=== PATIENT | female | born 1995 | race Caucasian/White ===

== ENCOUNTER 2021-02-15 22:23 | Emergency (ER) | payer BC, OTHER ==
[2021-02-15] MEDS ORDERED: Lactated Ringers 1,000 ML IV SCH (22:45)
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
--- NOTE | 2021-02-16 08:38 | CR ---
Left humerus: 2 views of the left humerus were obtained. Comparison: No prior humerus study is available. No acute fracture or other bony abnormality is appreciated. Impression: 1. No abnormality is identified on 2 view left humerus study. Diagnostic code #1
--- NOTE | 2021-02-16 09:15 | CR ---
Left forearm: 2 views of the left forearm were obtained. Comparison: No prior forearm study is available. Joint spaces are maintained. No discrete fracture or other bony abnormality is appreciated. Impression: 1. No acute osseous finding is seen on 2 view left forearm study. Diagnostic code #1
--- NOTE | 2021-02-16 09:15 | CR ---
Left hand: 2 views of the left hand were obtained. Comparison: No prior hand study is available. Joint spaces are maintained. No acute fracture, dislocation or other bony abnormality is appreciated. Impression: 1. No abnormality is appreciated on 2 view left hand exam. Diagnostic code #1
--- NOTE | 2021-02-16 09:15 | CT ---
Head CT Technique: Multiple axial sections through the brain were obtained. Intravenous contrast was not utilized. Reconstructed coronal and sagittal images were obtained. Comparison: No prior intracranial imaging is available. Findings: Ventricles along with basal cisterns and sulci over the convexities are within normal limits for the patient's age. No abnormal parenchymal densities are seen. No evidence of intracranial hemorrhage. No midline shift or mass-effect is appreciated. Bone window settings were reviewed. Visualized paranasal sinuses and mastoid sinuses show nothing acute. No acute calvarial abnormality is appreciated. Impression: 1. Nothing acute is appreciated on noncontrast head CT study. Diagnostic code #1 I agree with preliminary report from [facility], finalized on 02/16/21, 12:53 AM CDT
--- NOTE | 2021-02-16 10:29 | CT ---
CT cervical spine Technique: Multiple axial sections were obtained from above C1 inferiorly to the top of T2. Reconstructed coronal and sagittal images were obtained. Comparison: No prior cervical spine imaging is available. Findings: Vertebral body heights and disc spaces are maintained. Vertebral bodies and posterior arches are intact with no fracture being seen. No bony central or bony neural foraminal stenosis is seen. Impression: 1. Nothing acute is appreciated on CT study of the cervical spine. Diagnostic code #1 I agree with preliminary report from [facility], finalized on 02/16/21, 12:50 AM CDT
--- NOTE | 2021-02-16 10:31 | CT ---
Chest CT Technique: Multiple axial sections through the chest were obtained. Intravenous contrast was not utilized. Reconstructed coronal and sagittal images were obtained. Comparison: No prior chest imaging is available. Findings: Mediastinum shows no adenopathy or mass. No axillary adenopathy is seen. Thoracic aorta shows no aneurysm. No pericardial thickening is appreciated. Lung window settings were reviewed which show no acute parenchymal abnormality. No pleural effusions or pneumothorax are seen. Bone window settings were reviewed which show no acute osseous abnormality. Impression: 1. Nothing acute is seen on contrast enhanced chest CT. Diagnostic code #1 I agree with preliminary report from [facility], finalized on 02/16/21, 2:[address] abdomen and pelvis Technique: Multiple axial sections were obtained from above the dome of the diaphragm inferiorly through the pubic symphysis. Intravenous contrast was utilized. Reconstructed coronal and sagittal images were obtained. Comparison: No prior CT abdomen or pelvis studies available. Findings: Liver shows no focal parenchymal abnormality. Spleen appears within normal limits. Adrenal glands show no nodule. Pancreas is within normal limits. Kidneys show symmetric contrast enhancement with no hydronephrosis or mass. Abdominal aorta shows no aneurysm. No retroperitoneal adenopathy or mesenteric abnormalities are seen. No pelvic mass or adenopathy is noted. No free fluid or inflammatory change is appreciated. Appendix is seen which is normal in size. Bone window settings were reviewed which show no acute osseous finding. Impression: 1. Nothing acute is appreciated on CT study of the abdomen and pelvis. Diagnostic code #1 I agree with preliminary report from [facility], finalized on 02/16/21, 2:42 AM CDT
== END 2021-02-16 03:12 | disposition home or self-care (01) ==
LOC: JD.ED 22:23
DX: S40.022A Contusion of left upper arm, initial encounter (principal); V49.49XA Driver injured in collision with other motor vehicles in traffic accident, initial encounter
CPT/HCPCS: 36415; 70450; 71260; 72125; 73060; 73090; 73120; 74177; 80053; 80307; 82150; 84703; 85025; 85610; 85730; 86850; 86900; 86901; 99285; J7120; 99284